=== PATIENT | male | born 2000 | race Caucasian/White ===

== ENCOUNTER 2022-04-29 20:21 | Emergency (ER) | payer OTHER ==
[~2022-04-29] VITALS: Ht 170.2 cm; Wt 81.6 kg
--- NOTE | 2022-04-29 20:55 | NUR ---
BIBWIFE C/O LEFT SIDE CP X 2 WEEKS WITH RIOS AND FEELS DIZZY, - N/V. PATIENT IS AAOX4. PATIENT HAS LEFT CHEST PAIN CHARACTERIZED STABBING WITH SCALE OF 5/10. ATTACHED TO MONITOR. VITALS CHECKED.
--- NOTE | 2022-04-29 21:20 | NUR ---
COVID SWAB DONE AND SENT TO LAB
--- NOTE | 2022-04-29 21:35 | NUR ---
DANDY OPERATOR AT PT'S BEDSIDE
--- NOTE | 2022-04-29 23:48 | NUR ---
BLOOD DRAWN THEN SENT TO LAB
[2022-04-30] LABS: BASOPHILS % (AUTO) 0.4 % (0.0-2.0); HEMATOCRIT 41 % (39-51); HEMOGLOBIN 13.6 g/dL (13.5-17.5); LYMPHOCYTES # (AUTO) 2.8 K/uL (0.8-4.8); LYMPHOCYTES % (AUTO) 27.7 % (20.0-44.0); MEAN CORPUSCULAR HGB CONC 33 g/dl (31.0-36.0); MEAN CORPUSCULAR VOLUME 87 fL (80-96); MONOCYTES # (AUTO) 0.8 K/uL (0.1-1.30); MONOCYTES % (AUTO) 7.8 % (2.0-12.0); NEUTROPHILS # (AUTO) 5.6 K/uL (1.8-8.9); NEUTROPHILS % (AUTO) 56.1 % (43.0-81.0); PLATELET COUNT (AUTO) 224 K/uL (150-450); WHITE BLOOD COUNT (AUTO) 9.9 K/uL (4.3-11.0)
[2022-04-30 00:09] LABS: CALCIUM, SERUM 8.8 mg/dL (8.5-10.1); CARBON DIOXIDE 26 mmol/L (21-32); CHLORIDE 102 mmol/L (98-107); CREATININE 0.9 mg/dL (0.6-1.3); GLUCOSE 97 mg/dL (74-106); POTASSIUM 3.2 mmol/L (3.5-5.1); SODIUM SERUM 137 mmol/L (136-145); UREA NITROGEN, BLOOD 12 mg/dL (7-18)
[2022-04-30] MEDS ORDERED: NAPR-1192 PO (00:49)
[2022-04-30 01:05] VITALS: BP 122/80
--- NOTE | 2022-04-30 01:05 | NUR ---
Patient discharged to home in stable condition. Written and verbal after care instructions given. Patient verbalizes understanding of instruction.
== END 2022-04-30 01:05 | disposition home or self-care (01) ==
LOC: ER 20:28
DX: R07.9 Chest pain, unspecified (principal); R94.31 Abnormal electrocardiogram [ECG] [EKG]; Z20.822 Contact with and (suspected) exposure to COVID-19; R91.8 Other nonspecific abnormal finding of lung field
CPT/HCPCS: 99285; 71045; 87426; 93005; 85025; 80048; 36415; 84484; C9803